=== PATIENT | female | born 2000 | race African-American/Black ===

== ENCOUNTER 2020-04-07 14:01 | Emergency (ER) | payer OTHER ==
[~2020-04-07] VITALS: Ht 175.3 cm; Wt 93.0 kg
[2020-04-07 14:35] VITALS: BP 121/75; TEMP 98
== END 2020-04-07 14:35 | disposition home or self-care (01) ==
LOC: ED 14:01
PROC: 0HQGXZZ Repair Left Hand Skin, External Approach (ICD-10-PCS; principal; 2020-04-07)
DX: S61.211A Laceration without foreign body of left index finger without damage to nail, initial encounter (principal); W27.8XXA Contact with other nonpowered hand tool, initial encounter
CPT/HCPCS: 99282